=== PATIENT | male | born 1995 | race Caucasian/White ===

== ENCOUNTER 2017-08-02 14:09 | Emergency (ER) | payer OTHER ==
[~2017-08-02] VITALS: Ht 177.8 cm; Wt 68.0 kg
[~2017-08-02 14:09] MED LIST: ACETAMINOPHEN-1 EAC1 PO; ALLEGRA-D 24 H1 EACH PO; KEFLEX500 M1 PO; KEPPRA 500 MG500 M1 PO
[2017-08-02] MEDS ORDERED: KEPPRA 500 MG500 M1 PO (14:28)
[2017-08-02] MEDS ORDERED: ONDANSETRON HCL4 M2 PO (14:29)
[2017-08-02] MEDS ORDERED: LORATIDINE 10 M10 M1 PO (14:29)
[2017-08-02] MEDS ORDERED: VITAMIN B-12500 MCG PO (14:29)
[2017-08-02] MEDS ORDERED: PEPCID20 MG PO (14:30)
[2017-08-02 15:00] LABS: INFLUENZA A ANTIGEN None Detected (None Detect); INFLUENZA B ANTIGEN None Detected (None Detect)
[2017-08-02 15:34] LABS: ABSOLUTE EOSINOPHILS 0.1 thou/uL (0.0-0.7); ABSOLUTE LYMPHOCYTES 1.9 thou/uL (0.8-5.3); ABSOLUTE MONOCYTES 0.6 thou/uL (0.0-1.2); ABSOLUTE NEUTROPHILS 5.7 thou/uL (1.6-8.1); BASOPHILS 0.6 %; EOSINOPHILS 0.8 %; HEMATOCRIT 44.8 % (42.0-52.0); HEMOGLOBIN 15.3 gm/dL (14.0-18.0); LYMPHOCYTES 23.1 %; MCH 32.1 pg (26.0-34.0); MCHC 34.2 g/dL (28.0-37.0); MONOCYTES 6.9 %; MPV 10.5 fl. (7.2-11.1); NUCLEATED RBCS 0 /100WBC; PLATELET COUNT* 206 thou/uL (150-400); POLYS 68.6 %; RBC 4.76 mil/uL (4.50-6.00); RDW-CV 13.5 % (10.5-14.5); WBC 8.4 thou/uL (4.0-11.0)
[2017-08-02 15:43] LABS: CALCIUM 9.3 mg/dL (8.5-10.1); POTASSIUM 3.9 mmol/L (3.5-5.1)
[2017-08-02 15:52] LABS: ALBUMIN 4.7 g/dL (3.4-5.0); TOTAL BILIRUBIN 0.9 mg/dL (<0.1-1.0); TOTAL PROTEIN 8.6 g/dL (6.4-8.2)
[2017-08-02 16:03] LABS: URINE BILIRUBIN NEGATIVE (Negative); URINE BLOOD NEGATIVE (Negative); URINE CLARITY CLEAR; URINE COLOR STRAW; URINE GLUCOSE-RANDOM NEGATIVE (Negative); URINE KETONES TRACE (Negative); URINE LEUKOCYTES NEGATIVE (Negative); URINE NITRITE NEGATIVE (Negative); URINE PROTEIN NEGATIVE (Negative); URINE SPECIFIC GRAVITY 1.015 (1.005-1.030); URINE UROBILINOGEN 0.2 E.U./dl (0.2-1.0)
[2017-08-02 17:17] VITALS: BP 123/71
== END 2017-08-02 17:18 | disposition home or self-care (01) ==
LOC: M.ERS 14:09
PROVIDERS: Physician Assistant
DX: K40.90 Unilateral inguinal hernia, without obstruction or gangrene, not specified as recurrent (principal); R10.9 Unspecified abdominal pain; R11.0 Nausea

== ENCOUNTER 2018-10-23 16:42 | Emergency (ER) | payer OTHER ==
[~2018-10-23] VITALS: Ht 177.8 cm; Wt 64.4 kg
[~2018-10-23 16:42] MED LIST changes: +LORATIDINE 10 M10 M1 PO; +ONDANSETRON HCL4 M2 PO; +PEPCID20 MG PO; +VITAMIN B-12500 MCG PO
[2018-10-23 17:07] LABS: ABSOLUTE BASOPHILS 0.1 thou/uL (0.0-0.2); ABSOLUTE LYMPHOCYTES 1.8 thou/uL (0.8-5.3); ABSOLUTE MONOCYTES 0.7 thou/uL (0.0-1.2); ABSOLUTE NEUTROPHILS 8.2 thou/uL (1.6-8.1); BASOPHILS 0.6 %; EOSINOPHILS 0.1 %; HEMATOCRIT 43.1 % (42.0-52.0); HEMOGLOBIN 14.7 gm/dL (14.0-18.0); LYMPHOCYTES 16.4 %; MCH 31.9 pg (26.0-34.0); MCHC 34.1 g/dL (28.0-37.0); MCV 93.6 fL (80.0-100.0); MONOCYTES 6.6 %; MPV 10.4 fl. (7.2-11.1); NUCLEATED RBCS 0 /100WBC; PLATELET COUNT* 254 thou/uL (150-400); POLYS 76.3 %; RDW-CV 13.2 % (10.5-14.5); WBC 10.7 thou/uL (4.0-11.0)
[2018-10-23 17:14] LABS: CREATININE 1.1 mg/dL (0.6-1.3); POTASSIUM 3.6 mmol/L (3.5-5.1)
[2018-10-23 17:18] LABS: ALBUMIN 4.5 g/dL (3.4-5.0); TOTAL BILIRUBIN 0.7 mg/dL (<0.1-1.0); TOTAL PROTEIN 8.2 g/dL (6.4-8.2)
[2018-10-23] MEDS ORDERED: REMERON15 MG PO (17:37)
[2018-10-23 18:02] VITALS: BP 128/79
== END 2018-10-23 18:02 | disposition home or self-care (01) ==
LOC: M.ERS 16:42
PROVIDERS: Family Medicine
DX: S00.01XA Abrasion of scalp, initial encounter (principal); S00.212A Abrasion of left eyelid and periocular area, initial encounter; S00.31XA Abrasion of nose, initial encounter; R56.9 Unspecified convulsions; W18.39XA Other fall on same level, initial encounter; Y93.89 Activity, other specified; Y92.89 Other specified places as the place of occurrence of the external cause; Y99.8 Other external cause status